=== PATIENT | male | born 1950 | race Caucasian/White ===

== ENCOUNTER 2017-05-22 11:07 | Inpatient (IN) | payer MEDICARE ==
--- NOTE | 2017-05-15 05:13 | HP ---
CC: Dr. Garland Reed, Family Practitioner * HISTORY AND PHYSICAL: DATE OF PLANNED ADMISSION AND SURGERY: 05/22/17 HISTORY OF PRESENT ILLNESS: Mr. 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 Mr. Mark' history goes back to 1998 when he was followed by Dr. Santiago in [place], [place]. 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 There was no muscle invasion, but there was questionable invasion of the lamina propria. He was followed with periodic cystoscopies and had fulguration of small recurrences in October 1998 and again in February 2004. After 2004, he did not follow with his appointments with Dr. Santiago. He has had no follow up cystoscopies. He presented to him in June 2016 with recurrence of the gross hematuria. Dr. Santiago performed a cystoscopy, which showed multiple recurrences involving the bladder neck and trigone and base of the bladder. He recommended a CT urogram and TUR of the bladder lesions, but the patient did not follow up on the recommendation. He was recently seen by his primary care, Dr. Reed, who referred him to our office for continued care. The patient has been having recurrent episodes of gross hematuria. He has some hesitancy, decreased stream, and at times feeling of incomplete bladder emptying. He has nocturia about twice, their frequency about every 2 to 3 hours. He denies any burning on urination. PAST MEDICAL HISTORY AND SYSTEM REVIEW: He is in excellent health. He denies any cardiac or pulmonary diseases or symptoms. He is fairly active and has excellent exercise tolerance. MEDICATIONS: He is on no chronic medications. ALLERGIES: He denies any allergies to medications. SOCIAL HISTORY: He is a nonsmoker. He works in farming, raising organic beef. He could have been exposed in the past to herbicides and fertilizers, but no other exposures. PHYSICAL EXAMINATION GENERAL: Pleasant and healthy-looking white male, who looks in good physical form. VITAL SIGNS: Blood pressure 160/90, pulse of 60, oxygen saturation 98% on room air. LUNGS: Clear, resonant. HEART: Regular and rhythmic. No murmurs. ABDOMEN: Soft. No masses, no tenderness and no CVA tenderness. EXTERNAL GENITALIA: Normal. No penile lesions. Normal testes and no inguinal hernias. RECTAL: Exam shows slightly enlarged but nonsuspicious prostate. EXTREMITIES: Negative. DIAGNOSTIC STUDIES: Patient had a flexible cystoscopy at his initial visit in my office on 05/12/17. The examination showed transitional cell carcinoma lesions involving the proximal half of the prostatic urethra, the bladder neck circumferentially and the base of the bladder. There was also elevation of the right trigone possibly indicating tumor in the distal right ureter. CT Urogram showed normal upper tracts, no hydronephrosis or hydroureters, and no abnormal filling defects in the collecting systems or the ureters. There was diffuse thickening and irregularity of the bladder wall, consistent with either heavy bladder trabeculations or infiltrating bladder tumors IMPRESSION: Multiple bladder tumors involving the prostatic urethra, the bladder neck, and the base of the bladder and possible involvement of the distal right ureter. Normal upper tracts by CT urogram. PLAN: 1. Transurethral resection of the prostate, transurethral resection of multiple bladder tumors, possible bilateral ureteroscopies and bilateral stents placement. I discussed the above plans with the patient in detail. He understands that he will require additional treatments depending upon the pathology. Some of the potential complications of the procedures including hematuria, bladder injury, retrograde ejaculation from the TURP, urinary tract infections. All his questions were answered. [id number] #: [id number] MTDD
[~2017-05-22 11:07] MED LIST: Buffered Lidocaine 0.9% SYRIN* 5 ML/SYR SYRINGE INTRADERM ONE; cefTRIAXone(*) 2 GM in NS 0.9% 100 ML* 100 ML IVPB ONE
[2017-05-22] MEDS ORDERED: Buffered Lidocaine 0.9% SYRIN* 5 ML/SYR SYRINGE ONE (11:15)
[2017-05-22] MEDS ORDERED: cefTRIAXone(*) 2 GM ADDV.VIAL IVPB ONE (11:15)
[2017-05-22 11:59] LABS: INR 1.04 (0.77-1.02)
[2017-05-22] MEDS ORDERED: Naloxone* 0.4 MG/ML 1 ML VIAL IV PRN (12:19)
[2017-05-22] MEDS ORDERED: Ondansetron INJ* 2 MG/ML VIAL IV PRN (12:19)
[2017-05-22] MEDS ORDERED: fentaNYL* 50 MCG/ML 2 ML VIAL (100 MCG VIAL) ONE ×3 (12:23→15:05)
[2017-05-22] MEDS ORDERED: Midazolam* 1 MG/ML 2 ML VIAL (2 MG) ONE (12:24)
[2017-05-22] MEDS ORDERED: Propofol* 10 MG/ML 20 ML BTL IV PUSH ONE ×2 (12:25→14:05)
[2017-05-22] MEDS ORDERED: Lidocaine 2% PF * 5 ML VIAL ONE (12:25)
[2017-05-22] MEDS ORDERED: Rocuronium* 10 MG/ML VIAL ONE (12:25)
[2017-05-22] MEDS ORDERED: Sodium Citrate/Citric Acid* 15 ML UDC ONE (12:40)
[2017-05-22] MEDS ORDERED: Iohexol 180 (CONTRAST) 10 ML SDV IV ONE (13:00)
[2017-05-22] MEDS ORDERED: Fluorescein 10% INJ* 100 MG/ML AMP ONE (13:00)
[2017-05-22] MEDS ORDERED: Glycopyrrolate IV* 0.2 MG/ML 1 ML VIAL ONE (13:07)
[2017-05-22] MEDS ORDERED: Neostigmine Methylsulfate* 2 MG/2 ML SYRINGE ONE (13:07)
[2017-05-22] MEDS ORDERED: Dexamethasone IV* 4 MG/ML 1 ML (4 MG) ONE (13:07)
[2017-05-22] MEDS ORDERED: Lidocaine 2% JELLY* 6 ML JELLY TOPICAL ONE (14:41)
[2017-05-22] MEDS: fentaNYL* 50 MCG/ML 2 ML VIAL (100 MCG VIAL) IV PRN ×4 (14:44→15:21)
--- NOTE | 2017-05-22 14:46 | RAD ---
INDICATION: Right retrograde examination COMPARISON: CT urogram May 16, 2017 FINDINGS: 9 seconds of fluoroscopy were provided for the urology department. Fluoroscopic spot imaging of the abdomen were obtained for operative control and show right ureteral stent placement . CPT II Codes: G9500 (fluoro time doc)
[2017-05-22] MEDS ORDERED: oxyCODONE/Acetamin 5/325 MG* TAB ONE (15:08)
[2017-05-22] MEDS ORDERED: Oxybutynin TAB* 5 MG ONE (15:31)
[2017-05-22] MEDS ORDERED: Ondansetron INJ* 2 MG/ML VIAL ONE (16:05)
[2017-05-22] MEDS ORDERED: oxyCODONE/Acetamin 5/325 MG* TAB PO PRN (17:56)
[2017-05-22] MEDS ORDERED: Oxybutynin TAB* 5 MG PO PRN (17:56)
--- NOTE | 2017-05-23 01:41 | OP ---
CC: Dr. Garland Reed * DATE OF OPERATION: 05/22/17 - ROOM #340 DATE OF : 54. SURGEON: Don Finn MD. ANESTHESIOLOGIST: Dr. Wilver Hernández. ANESTHESIA: General. PRE-OP DIAGNOSES: 1. 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 2. Bladder outlet obstruction due to above. 3. Suspected extensive bladder tumors. POST-OP DIAGNOSES: Pending pathology. OPERATIVE PROCEDURE: 1. Cystoscopy. 2. Transurethral resection of the prostate. 3. Right retrograde pyelography and placement of right ureteral stent (6-Italian ). 4. Transurethral resection of bladder lesions, Rt base of bladder (5 cm). INDICATION FOR PROCEDURE: Mr. Mark is 67-year-old white male who was diagnosed in June [address] Santiago in [place], [place] with extensive bladder tumors. At that time, he was advised workup and surgery. However, the patient delayed his treatment. Upon evaluation in my office, cystoscopy showed extensive transitional cell carcinomas involving the prostatic urethra and there was diffuse hyperemia and irregularity of the bladder wall suspicious of high grade bladder tumors. CT urogram showed normal kidneys, collecting systems and ureters without any abnormal filling defects and no hydronephrosis or hydroureter. There was however diffuse and marked thickening of the bladder wall. Because of the above history and findings, the patient is admitted for the above procedure. PATHOLOGY AT CYSTOSCOPY: The penile and bulbar urethrae looked normal. The prostatic urethra measured about 3 cm in length and there were extensive transitional cell carcinoma lesions involving the whole prostatic urethra and the bladder neck. Examination of the bladder showed diffuse thickening and hyperemia of the whole bladder wall, in particular in the base of the bladder. The process was obscuring the ureteral orifices. There were no papillary lesions seen in the bladder. The lesions noted in the bladder wall were suspicious for high-grade invasive transitional cell carcinoma. Right retrograde pyelography showed no hydroureter and no hydronephrosis and no abnormal filling defects. DESCRIPTION OF PROCEDURE: After successful general anesthesia, the patient was placed in the lithotomy position and was prepped and draped for a cystoscopy. Cystoscopy was performed. The findings in the prostatic urethra and in the bladder were noted. The resectoscope was then introduced inside the bladder. Mannitol-sorbitol was used for irrigation and the inflow and outflow were adjusted to avoid overdistention of the bladder. Transurethral resection of the prostate was then carried starting at the bladder neck all the way to the level of the verumontanum. All the transitional cell carcinoma lesions noted in the prostatic urethra were resected down to adenoma and to capsule. The bleeders were electrocoagulated. There were no deep cuts in the capsule. The verumontanum and the external sphincter were intact at the end of the resection. The bladder was then irrigated and the resected tissue was evacuated and sent separately for pathology. The bladder was then entered and again carefully inspected. The ureteral orifices could not be visualized because of the above described process. The patient was given 0.5 cc of fluorescein and that helped to identify the ureteral orifices. The lesions seemed to be more prominent in the right trigone and the right base of the bladder. Resection of the suspected lesions was then carried with the resectoscope all the way down to muscle. That allowed identification of the right ureteral orifice. Although there was free efflux noted, it was nonetheless decided to place a stent to avoid any fibrosis and obstruction of the right ureter. The cystoscope was introduced inside the bladder. After several attempts, a Glidewire was successfully introduced into the right orifice and positioned in the area of the renal pelvis. Retrograde pyelography was performed. A size 6-Italian stent was then placed with the proximal end coiling in the renal pelvis and the distal end coiling inside the bladder. The resectoscope was reintroduced inside the bladder. Additional extensive resection was carried in the right base of the bladder and down to muscle. The tissue was evacuated and sent for pathology. The efflux was seen coming from the area of the left orifice, but it was decided not to resect in that area and not to place a stent as there was no obstruction on the CT. Fulguration of the bleeders were then carried achieving very good hemostasis. The whole bladder was involved with the same process that was noted in the base. The plan is to await the result of the pathology on the resected bladder tissue and then decide on the management of the bladder lesions. After thorough irrigation of the bladder and evacuation of the resected tissue, the resectoscope was removed and a size 22-Italian Barrett catheter was passed inside the bladder and the balloon inflated with 30 cc of water. Irrigation yielded clear returns. The patient tolerated the procedures well and left the operating room in good condition. The blood loss was estimated at less than 100 cc. The specimens were prostate chips and prostatic urethra, and lesions of the right base of the bladder. [id number]/[facility] #: [id number] [facility]ALTH[facility]
[2017-05-23 08:50] VITALS: BP 138/72
[2017-05-23] MEDS ORDERED: cefTRIAXone(*) 1 GM in NS 0.9% 50 ML* 50 ML IVPB ONE (09:00)
--- NOTE | 2017-05-23 10:14 | DS ---
DISCHARGE SUMMARY: DATE OF ADMISSION: 05/22/17 DATE OF DISCHARGE: 05/23/17. FINAL DIAGNOSES: 1. Benign prostatic hyperplasia. 2. Extensive transitional cell carcinomas of the prostatic urethra. 3. Suspected diffuse bladder tumors. OPERATIONS: 1. Cystoscopy. 2. Transurethral resection of the prostate. 3. Transurethral resection of bladder lesions. 4. Right retrograde pyelography and placement of right ureteral stent (6-Albanian ). HISTORY: Mr. Mark is a 67-year-old white male whose history goes back to 1998 when he was diagnosed by Dr. Santiago in [place], [place] as having a medium grade nonmuscle invasive transitional cell carcinoma of the urinary bladder. He was followed with periodic cystoscopies and had fulguration of small recurrences, the last one in February 2004. Following that episode, he did not follow up with his appointment with Dr. Santiago. Starting June in 2016, he noted recurrence of the gross hematuria. He was again evaluated by Dr. Santiago who performed a cystoscopy and it showed multiple transitional cell carcinoma involving the bladder neck, the trigone, and the base of the bladder. He recommended a CT urogram followed by TUR of the bladder tumors; however, the patient did not follow on the recommendation. The patient was referred recently to my office with recurrent gross hematuria and obstructive voiding symptoms with a slow stream, hesitancy, nocturia 2 to 3 times, and voiding every 2 hours with episodes of recurrent gross hematuria. Office cystoscopy showed extensive tumors involving the whole prostatic urethra , the bladder neck, and the diffuse hyperemia of the bladder wall. CT urogram showed normal upper tracts without any hydronephrosis or abnormal filling defects in the collecting systems or in the ureters. The bladder showed diffuse thickening. Because of the above findings, the patient was admitted for the above operation. PAST MEDICAL HISTORY AND SYSTEM REVIEW: He is in excellent health. He is a nonsmoker. He denies any cardiac or pulmonary diseases or symptoms. 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 ALLERGIES: He denies any allergies to medications. PHYSICAL EXAMINATION: Preoperative physical examination was all within normal. LABORATORY DATA: Preoperative lab work was all within normal. His PSA was normal. His serum and renal function was normal. COURSE IN HOSPITAL: The patient was admitted the morning of his surgery. He underwent a cystoscopy, which showed extensive transitional cell carcinomas involving the bladder neck and most of the prostatic urethra. There was also diffuse hyperemia and thickening of the bladder wall obscuring the trigone and the ureters. There were no clear papillary lesions noted inside the bladder. The patient underwent transurethral resection of the prostate, resecting all the transitional cell carcinomas in the bladder neck and in the prostatic urethra. He then underwent extensive deep resections in the right base of the bladder and right trigone, resecting enough tissue for proper sampling and diagnosis. Because the resection involved the right trigone and right orifice, a 6-Albanian stent was placed in the right kidney. Because the same process was involving the rest of the bladder wall, no additional resection was done pending the pathology report. The patient was kept overnight for observation. He did very well and he was discharged in the morning with the Barrett catheter. He will be seen in the office in 3 to 4 days for catheter removal. Additional treatment will depend upon the pathology. [id number]/CPS #: [id number] MTDD
== END 2017-05-23 11:50 | disposition home or self-care (01) | DRG 667 ==
LOC: OR 11:07 → SSU 17:27
PROVIDERS: ADMIT Urology; ATTEND Urology
PROC: BT1DZZZ Fluoroscopy of Right Kidney, Ureter and Bladder (ICD-10-PCS; 2017-05-22)
PROC: 0T768DZ Dilation of Right Ureter with Intraluminal Device, Via Natural or Artificial Opening Endoscopic (ICD-10-PCS; 2017-05-22)
PROC: 0VB08ZZ Excision of Prostate, Via Natural or Artificial Opening Endoscopic (ICD-10-PCS; principal; 2017-05-22 13:45)
PROC: 0TBB8ZZ Excision of Bladder, Via Natural or Artificial Opening Endoscopic (ICD-10-PCS; 2017-05-22 13:45)
DX: C68.0 Malignant neoplasm of urethra (principal); C67.8 Malignant neoplasm of overlapping sites of bladder; N40.1 Benign prostatic hyperplasia with lower urinary tract symptoms; R39.11 Hesitancy of micturition; R39.14 Feeling of incomplete bladder emptying; R31.0 Gross hematuria; N32.0 Bladder-neck obstruction
CPT/HCPCS: 36415; 74420; 85610; A9270-GY; C1876; J0696; J1100; J2250; J2405; J2704; J3010